=== PATIENT | male | born 1945 | race Caucasian/White ===

== ENCOUNTER → 2018-02-06 | Outpatient (CLI) | payer OTHER | END | disposition home or self-care (01) | LOC: OIH 13:58 | PROVIDERS: ATTEND Nurse Practitioner Adult Health | DX: Z13.6 Encounter for screening for cardiovascular disorders (principal) | CPT/HCPCS: 75571 ==

== ENCOUNTER → 2023-02-28 | Outpatient (CLI) | payer MEDICARE ==
[~2023-02-28] MED LIST: ATOR40TA69 PO; BETA1TAB20 PO; CALC-687 PO; LEVO50CA4 PO
== END | disposition home or self-care (01) ==
LOC: SHCH 07:46
PROVIDERS: ATTEND Internal Medicine Cardiovascular Disease
DX: I08.3 Combined rheumatic disorders of mitral, aortic and tricuspid valves (principal); R00.2 Palpitations; I50.1 Left ventricular failure, unspecified; I10 Essential (primary) hypertension; E78.5 Hyperlipidemia, unspecified
CPT/HCPCS: 93306

== ENCOUNTER 2024-10-16 08:04 | Emergency (ER) | payer MEDICARE ==
[~2024-10-16] VITALS: Ht 188 cm; Wt 108.9 kg
--- NOTE | 2024-10-16 08:19 | ERN ---
ED Note History of Present Illness Stated Complaint: BACK PAIN X 2 WEEKS Chief Complaint: Back Pain-No Injury Time Seen by MD: 08:07 Dictation: Patient is a 78-year-old male with past medical history of PA, hyperlipidemia, hypothyroidism and had a stent came with a chief complaint of back pain since 2 weeks. Patient denies any injury, aggravating or relieving factors for the back pain. Patient's back pain is consistent and he informed that it mostly occurs in the mornings. Allergies: Coded Allergies: No Known Drug Allergies (Unverified Allergy, Unknown, 10/14/19) Home Meds Reported Medications Atorvastatin Calcium (LIPITOR) 40 Mg Tablet, 40 MG PO DAILY, TAB 01/05/23 Calcium Carbonate/Vitamin D3 (Calcium 500 + Vit D Caplet) 1 Each Tablet, 1 EACH PO DAILY, TAB 01/05/23 Vit A/Vit C/Vit E/Zinc/Copper (Preservision Areds Tablet) 1 Each Tablet, 1 EACH PO BID, TAB 01/05/23 Levothyroxine Sodium (Levothyroxine) 50 Mcg Capsule, 50 MCG PO DAILY, CAP 01/05/23 Atorvastatin Calcium (LIPITOR) 40 Mg Tablet, 40 MG PO DAILY, TAB 01/05/23 Past Medical History Past Medical History: Heart Disease, PA Additional Past Medical Hx: History of hyperlipidemia Surgical History: Other Surgical History Other: HIP. SHOULDER, HEART STENT Family History: HTN Social History: ETOH, Lives with family Review of System Dictation Constitutional-no chills, weight loss/gain, fever Eyes-no injury, pain, redness and discharge ENT-no injury, pain, swelling Cardiovascular no chest pain, palpitations, edema Respiratory no shortness of breath, cough, wheezing Abdomen/GI-no abdominal pain, diarrhea, constipation, vomiting, nausea Back Admits back pain Genitourinary no injury, bleeding and discharge Musculoskeletal/extremities no injury, deformity Skin no rash, discoloration Neuro-no headache, weakness, numbness, tingling, seizures, tremors Psych-no suicidal ideation, homicidal ideation, hallucinations, depression, anxiety, memory loss Initial Vital Sign VS Vital Signs Date Time Temp Pulse Resp B/P (MAP) Pulse Ox O2 Delivery O2 Flow Rate FiO2 10/16/24 08:06 97.9 81 16 190/86 98 Room Air 0 10/16/24 09:11 21 Physical Exam Dictation General-patient is awake alert and oriented Head/neck-normocephalic, atraumatic Eyes-PERRL, EOMI, vision at baseline Neck-trachea midline, supple, no nuchal rigidity Cardiovascular-RRR, normal S1/S2, no MRG is, no JVD Respiratory-no distress, wheezing, rales, rhonchi Abdomen-no tenderness, guarding, soft, nondistended Skin warm, dry, normal turgor, no rash Musculoskeletal/extremities pulses equal, no cyanosis Neuro-COA X 4, GCS 15, strength 5/5, CN 2-12 intact Psych-normal behavior, mood and affect normal Results (Laboratory/Radiology) Laboratory/Radiology Laboratory Tests Test 10/16/24 09:01 10/16/24 10:22 White Blood Count 6.4 K/uL (4.8-10.8) Red Blood Count 4.47 MIL/uL (4.50-6.20) L Hemoglobin 14.4 g/dL (14.0-18.0) Hematocrit 43.2 % (42-54) Mean Corpuscular Volume 96.6 fL (79-99) Mean Corpuscular Hemoglobin 32.2 pg (27.0-33.0) Mean Corpuscular Hemoglobin Concent 33.3 g/dL (32.0-36.0) Red Cell Distribution Width 12.0 % (11.0-15.5) Platelet Count 149 K/uL (130-400) Mean Platelet Volume 11.4 fL (7.5-10.5) H Immature Granulocyte % (Auto) 0.5 % (0-1) Neutrophils (%) (Auto) 71.2 % (40.0-77.0) Lymphocytes (%) (Auto) 16.2 % (21.0-51.0) L Monocytes (%) (Auto) 10.1 % (3.0-13.0) Eosinophils (%) (Auto) 1.2 % (0.0-8.0) Basophils (%) (Auto) 0.8 % (0.0-5.0) Neutrophils # (Auto) 4.6 K/uL (1.8-7.7) Lymphocytes # (Auto) 1.0 K/uL (1.0-4.8) Monocytes # (Auto) 0.7 K/uL (0.1-1.0) Eosinophils # (Auto) 0.08 K/uL (0.00-0.70) Basophils # (Auto) 0.05 K/uL (0.00-0.20) Absolute Immature Granulocyte (auto 0.03 K/uL (0-1) Nucleated Red Blood Cells 0.0 % (0.0-0.19) Sodium Level 137 mmol/L (136-145) Potassium Level 4.4 mmol/L (3.5-5.1) Chloride Level 102 mmol/L (101-111) Carbon Dioxide Level 29 mmol/L (21-32) Blood Urea Nitrogen 12 mg/dL (7-18) Creatinine 1.2 mg/dL (0.5-1.3) Glomerular Filtration Rate Calc 62 mL/min (>90) Random Glucose 195 mg/dL (70-105) H Total Calcium 9.2 mg/dL (8.5-10.1) Urine Color LIGHT-YELLOW (YELLOW) Urine Appearance CLEAR (CLEAR) Urine pH 5.0 (5.0-8.0) Urine Specific [place] 1.012 (1.001-1.031) Urine Protein NEGATIVE mg/dL (NEGATIVE) Urine Glucose (UA) NEGATIVE mg/dL (NEGATIVE) Urine Ketones NEGATIVE mg/dL (NEGATIVE) Urine Occult Blood NEGATIVE (NEGATIVE) Urine Nitrate NEGATIVE (NEGATIVE) Urine Bilirubin NEGATIVE mg/dL (NEGATIVE) Urine Urobilinogen 0.2 mg/dL (0.2-1.0) Urine Leukocyte Esterase NEGATIVE Sánchez/uL Labs Reviewed?: Yes Ultrasound Comment: [id number] [address] IMAGING REPORT Signed PATIENT: QING GARDINER MR#: [id number] : 1945 SEX: M AGE: 78 LOCATION: [facility] ORDER 0 STATUS: REG ER REPORT#: [id number] SERVICE 9 REASON: RULE OUT TRIPLE A ORDERING PHYSICIAN: GAVIOTA YOON MD PROCEDURE: AORTA - US AORTA LIMITED US AORTA LIMITED REASON: RULE OUT TRIPLE A. COMPARISON: None TECHNIQUE: Limited abdominal ultrasound study was performed. FINDINGS: Proximal portion of abdominal aorta measures 2.2 x 2.3 cm, midportion measures 1.7 x 1.9 cm and distal portion measures 1.9 x 1.9 cm. Right common iliac artery measures 13 x 11 mm. Left common iliac artery measures 13 x 16 mm. No evidence of abdominal aortic aneurysm is seen. IMPRESSION: No evidence of abdominal aortic aneurysm. DICTATED BY: ADRIANA SEYMOUR MD DATE: 10/16/2440 ELECTRONICALLY SIGNED BY: ADRIANA SEYMOUR MD DATE: 10/16/[address] Scan Comment: [place] [id number] [place] [address] IMAGING REPORT Signed PATIENT: QING GARDINER MR#: [id number] : 1945 SEX: M AGE: 78 LOCATION: [facility] ORDER 8 STATUS: REG ER REPORT#: [id number] SERVICE REASON: Left low back pain ORDERING PHYSICIAN: DANICA DIAMOND MD PROCEDURE: ABD PEL WO - CT ABDOMEN/PELVIS W/O CONTRAST CT ABDOMEN/PELVIS W/O CONTRAST HISTORY: Left lower back pain COMPARISON: None TECHNIQUE: Multiple sequential axial images of the abdomen and pelvis were obtained from the dome of the diaphragm through symphysis pubis. Patient was not given contrast through intravenous route. Oral contrast was not given. FINDINGS: No pleural effusion is seen bilaterally. There is right middle lobe pulmonary nodule measuring 8.5 mm. Degenerative changes of the thoracolumbar spine are present. The heart is not enlarged. Mitral annulus calcifications are seen. There is scoliosis. Liver measures 17 cm. Fatty changes of the liver are noted. A small hiatal hernia is seen. The liver, spleen, adrenal glands and pancreas are unremarkable. There is no evidence of hydronephrosis bilaterally. No evidence of renal stone is seen. Nonspecific bilateral perinephric fat stranding is seen may be related to pyelonephritis. Urinalysis correlation may be helpful. There is diverticulosis. Fecal material is seen in the colon. There are normal size retroperitoneal and mesenteric lymph nodes. No ascites is seen. Atherosclerotic changes are present. Pelvic sidewalls are symmetric bilaterally. There are bilateral hip prosthesis causing artifacts limiting evaluation of the pelvis. Bladder is poorly seen. IMPRESSION: 1. Nonspecific bilateral perinephric fat stranding is seen may be related to pyelonephritis. Urinalysis correlation may be helpful. There is diverticulosis. Fecal material is seen in the colon. CT was performed with one or more following dose reduction techniques: automated exposure control, adjustment of the mA and kv according to patient's size, or use of a iterative reconstruction technique. DICTATED BY: ADRIANA SEYMOUR MD DATE: 10/16/24 1024 ELECTRONICALLY SIGNED BY: ADRIANA SEYMOUR MD DATE: 10/16/24 1029 ED Course ED Course Orders Procedure Category Date Status Time Us Aorta Limited US 10/16/24 Resulted 08:10 Cbc With Differential LAB 10/16/24 Complete 08:39 Basic Metabolic Panel LAB 10/16/24 Complete 08:39 Urinalysis Profile LAB 10/16/24 Complete 08:39 Ct Abdomen/Pelvis W/O CT 10/16/24 Resulted Contrast 08:57 Vital Signs Date Time Temp Pulse Resp B/P (MAP) Pulse Ox O2 Delivery O2 Flow Rate FiO2 10/16/24 10:24 98.6 64 20 150/72 100 Room Air* 0 21 10/16/24 09:11 98.6 65 20 154/74 100 Room Air* 0 21 10/16/24 08:06 97.9 81 16 190/86 98 Room Air 0 Medical Decision Making MDM INITIAL IMPRESSION Initial history and physical concerning for AAA , Musculoskeletal pain , Injury Contributing medical problems: I have reviewed the triage nursing notes and vital signs. Initial plan: Laboratory evaluation and x-ray DATA REVIEW [I have reviewed additional NN, repeat VS, and monitoring where indicated.] Heart rate, blood pressure, and O2 saturation are [acceptable]. Flynn diagnostic results: [none] Other independent historian: [none] Review of external data: [None.] ED COURSE Interventions: [None] Reassessment: [Not indicated.] DISPOSITION Final diagnostic impression:[ ] I discussed my findings, clinical impression and treatment recommendations with [the patient.] I have reviewed the social factors contributing to the patient's presentation and disposition planning. [ ] My final plan for disposition was made based upon -[mild] risk of complications and potential morbidity of the patient's condition. -Discussion with [the patient] regarding management options[.] [-Consultation with] [diposition] DX & DISP Disposition: Discharge Departure Impression: Primary Impression: Constipation Additional Impressions: Diverticulosis, UTI (urinary tract infection) Condition: Stable Scripts Cephalexin Monohydrate (Keflex) 500 Mg Cap 1 CAP PO BID for 10 Days, #20 CAP 0 Refills Prov: GAVIOTA YOON MD 10/16/24 Lactulose (Lactulose) 10 Gram/15 Ml Solution 30 ML PO BID for constipation for 5 Days, #500 ML 0 Refills Prov: GAVIOTA YOON MD 10/16/24 Additional Instructions: FOLLOW-UP WITH PRIMARY CARE PROVIDER IN 1 TO 2 DAYS. TAKE MEDICATIONS DIRECTED HERE IN THE EMERGENCY ROOM. OKAY TO CONTINUE HOME MEDICATIONS UNLESS OTHERWISE DISCUSSED DURING YOUR VISIT IN THE EMERGENCY ROOM TODAY. RETURN TO YOUR NEAREST EMERGENCY ROOM IF SYMPTOMS WORSEN OR IF THERE IS NO IMPROVEMENT. CALL 911 IF YOU NEED IMMEDIATE ASSISTANCE. TAKE TYLENOL [id number] NEEDED AND IF NO CONTRAINDICATIONS ARE PRESENT. INCREASE ORAL HYDRATION. A WOUND CULTURE OR URINE CULTURE WAS ORDERED HERE IN THE EMERGENCY ROOM DEPARTMENT PLEASE FOLLOW-UP WITH PRIMARY CARE PROVIDER AND ADVISE THEM TO GET REPEAT PORTS FROM OUR FACILITY. IF YOU HAD ANY ANNIKA WRAP/SPLINTS THAT WERE APPLIED HERE, PLEASE DO NOT REMOVE THEM UNTIL YOU SEE YOUR PRIMARY CARE OR SPECIALTY. REFERRALS: Referrals: KOSTAS HERNANDEZ NP (PCP) Time of Disposition: 10:52 DANICA DIAMOND MD Oct 16, 2024 08:18 GAVIOTA YOON MD Oct 16, 2024 10:53
[2024-10-16 09:13] LABS: BASOPHILS # (AUTO) 0.05 K/uL (0.00-0.20); BASOPHILS % (AUTO) 0.8 % (0.0-5.0); EOSINOPHILS # (AUTO) 0.08 K/uL (0.00-0.70); EOSINOPHILS % (AUTO) 1.2 % (0.0-8.0); HEMATOCRIT 43.2 % (42-54); IMMATURE GRANULOCYTE ABSOLUTE 0.03 K/uL (0-1); LYMPHOCYTES % (AUTO) 16.2 % (21.0-51.0); MEAN CORPUSCULAR HEMOGLOBIN 32.2 pg (27.0-33.0); MEAN CORPUSCULAR HGB CONC 33.3 g/dL (32.0-36.0); MEAN CORPUSCULAR VOLUME 96.6 fL (79-99); MONOCYTES # (AUTO) 0.7 K/uL (0.1-1.0); MONOCYTES % (AUTO) 10.1 % (3.0-13.0); NEUTROPHILS # (AUTO) 4.6 K/uL (1.8-7.7); NEUTROPHILS % (AUTO) 71.2 % (40.0-77.0); PLATELET COUNT (AUTO) 149 K/uL (130-400); RED BLOOD CELL COUNT(AUTO) 4.47 MIL/uL (4.50-6.20); WHITE BLOOD COUNT (AUTO) 6.4 K/uL (4.8-10.8)
[2024-10-16 09:23] LABS: CREATININE 1.2 mg/dL (0.5-1.3); POTASSIUM 4.4 mmol/L (3.5-5.1)
[2024-10-16 10:24] VITALS: BP 150/72; PULSE 64; RESP 20; TEMP 98.6; O2SAT 100
--- NOTE | 2024-10-16 10:26 | HMCIMG ---
US AORTA LIMITED REASON: RULE OUT TRIPLE A. COMPARISON: None TECHNIQUE: Limited abdominal ultrasound study was performed. FINDINGS: Proximal portion of abdominal aorta measures 2.2 x 2.3 cm, midportion measures 1.7 x 1.9 cm and distal portion measures 1.9 x 1.9 cm. Right common iliac artery measures 13 x 11 mm. Left common iliac artery measures 13 x 16 mm. No evidence of abdominal aortic aneurysm is seen. IMPRESSION: No evidence of abdominal aortic aneurysm.
--- NOTE | 2024-10-16 10:29 | HMCIMG ---
CT ABDOMEN/PELVIS W/O CONTRAST HISTORY: Left lower back pain COMPARISON: None TECHNIQUE: Multiple sequential axial images of the abdomen and pelvis were obtained from the dome of the diaphragm through symphysis pubis. Patient was not given contrast through intravenous route. Oral contrast was not given. FINDINGS: No pleural effusion is seen bilaterally. There is right middle lobe pulmonary nodule measuring 8.5 mm. Degenerative changes of the thoracolumbar spine are present. The heart is not enlarged. Mitral annulus calcifications are seen. There is scoliosis. Liver measures 17 cm. Fatty changes of the liver are noted. A small hiatal hernia is seen. The liver, spleen, adrenal glands and pancreas are unremarkable. There is no evidence of hydronephrosis bilaterally. No evidence of renal stone is seen. Nonspecific bilateral perinephric fat stranding is seen may be related to pyelonephritis. Urinalysis correlation may be helpful. There is diverticulosis. Fecal material is seen in the colon. There are normal size retroperitoneal and mesenteric lymph nodes. No ascites is seen. Atherosclerotic changes are present. Pelvic sidewalls are symmetric bilaterally. There are bilateral hip prosthesis causing artifacts limiting evaluation of the pelvis. Bladder is poorly seen. IMPRESSION: 1. Nonspecific bilateral perinephric fat stranding is seen may be related to pyelonephritis. Urinalysis correlation may be helpful. There is diverticulosis. Fecal material is seen in the colon. CT was performed with one or more following dose reduction techniques: automated exposure control, adjustment of the mA and kv according to patient's size, or use of a iterative reconstruction technique.
[2024-10-16 10:36] LABS: APPEARANCE,URINE CLEAR (CLEAR); BILIRUBIN,URINE NEGATIVE (NEGATIVE); COLOR,URINE LIGHT-YELLOW (YELLOW); GLUCOSE, URINE (UA) NEGATIVE (NEGATIVE); KETONES,URINE NEGATIVE (NEGATIVE); LEUKOCYTE ESTERASE ,URINE NEGATIVE Leu/uL (NEGATIVE); NITRATE,URINE NEGATIVE (NEGATIVE); OCCULT BLOOD,URINE NEGATIVE (NEGATIVE); PROTEIN,URINE NEGATIVE (NEGATIVE); UROBILINOGEN,URINE 0.2 mg/dL (0.2-1.0)
[2024-10-16 10:40] LABS: ADD UA MICROSCOPIC NO
[2024-10-16] MEDS ORDERED: LACT10SO85 PO (10:53)
[2024-10-16] MEDS ORDERED: CEPH500B PO (10:53)
== END 2024-10-16 10:55 | disposition home or self-care (01) ==
LOC: EDH 08:04
DX: K59.00 Constipation, unspecified (principal); N39.0 Urinary tract infection, site not specified; K57.90 Diverticulosis of intestine, part unspecified, without perforation or abscess without bleeding; E78.5 Hyperlipidemia, unspecified; Z79.890 Hormone replacement therapy; Z79.899 Other long term (current) drug therapy; Z95.5 Presence of coronary angioplasty implant and graft
CPT/HCPCS: 36415; 74176; 76775; 80048; 81003; 85025; 99284

== ENCOUNTER 2024-12-05 08:00 | Emergency (ER) | payer MEDICARE ==
[~2024-12-05] VITALS: Ht 188 cm; Wt 108.9 kg
[~2024-12-05 08:00] MED LIST changes: +CEPH500B PO; +LACT10SO85 PO
[2024-12-05 08:19] VITALS: BP 122/73; PULSE 72; RESP 20; TEMP 97.6; O2SAT 97
--- NOTE | 2024-12-05 08:27 | ERN ---
ED Note History of Present Illness Stated Complaint: LOW BACK PAIN X 1 MONTH Chief Complaint: Low Back Pain/Injury Time Seen by MD: 08:13 Dictation: 79-year-old male presents to the ED for evaluation of lower back pain onset 1 month ago. Patient denies any urinary retention, incontinence, trauma, injury or any other associated symptoms at this time. Allergies: Coded Allergies: No Known Drug Allergies (Unverified Allergy, Unknown, 10/14/19) Home Meds Active Scripts Cephalexin Monohydrate (Keflex) 500 Mg Cap, 1 CAP PO BID for 10 Days, #20 CAP 0 Refills Prov:GAVIOTA YOON MD 10/16/24 Lactulose (Lactulose) 10 Gram/15 Ml Solution, 30 ML PO BID for constipation for 5 Days, #500 ML 0 Refills Prov:GAVIOTA YOON MD 10/16/24 Reported Medications Atorvastatin Calcium (LIPITOR) 40 Mg Tablet, 40 MG PO DAILY, TAB 01/05/23 Calcium Carbonate/Vitamin D3 (Calcium 500 + Vit D Caplet) 1 Each Tablet, 1 EACH PO DAILY, TAB 01/05/23 Vit A/Vit C/Vit E/Zinc/Copper (Preservision Areds Tablet) 1 Each Tablet, 1 EACH PO BID, TAB 01/05/23 Levothyroxine Sodium (Levothyroxine) 50 Mcg Capsule, 50 MCG PO DAILY, CAP 01/05/23 Atorvastatin Calcium (LIPITOR) 40 Mg Tablet, 40 MG PO DAILY, TAB 01/05/23 Past Medical History Past Medical History: CAD, Hypothyroid Additional Past Medical Hx: History of hyperlipidemia Surgical History: Other Surgical History Other: BILATERAL HIP AND SHOULDERS, STENTS, VALVE REPLACEMENT Family History: HTN Social History: ETOH, Lives with family Review of System Dictation Constitutional: Negative for fever,chills, and weight loss Eyes: Negative for injury, pain,redness, and discharge ENT: Negative for injury,pain or swelling Cardiovascular: Negative for chest pain, palpitations, and edema Respiratory: Negative for shortness of breath, cough, and wheezing, Abdomen/GI: Negative for abdominal pain, nausea, vomiting, diarrhea, and constipation Back: Negative for back pain negative for injury : Negative for injury, bleeding and discharge MS/Extremity: Negative for injury and deformity Skin: Negative for rash, and discoloration Neuro: Negative for headache, weakness, numbness, tingling, and seizure Psych: Negative for suicide ideation, homicidal ideation, and hallucinations Initial Vital Sign VS Vital Signs Date Time Temp Pulse Resp B/P (MAP) Pulse Ox O2 Delivery O2 Flow Rate FiO2 12/05/24 08:01 97.5 72 20 122/73 99 Room Air 0 12/05/24 08:19 21 Physical Exam Dictation General: awake, alert, NAD Head/Face: Normocephalic, atraumatic Eyes: PERRL, EOMI, vision at baseline ENT: oral cavity clear, TMs clear, no signs of infection Neck: Trachea midline, supple, no nuchal rigidity Cardiovascular: RRR, normal S1/S2, No MRGs, no JVD Respiratory: CTAB, no respiratory distress, No rales or wheezes Abdomen: Soft, non-tender, non-distended, normal bowel sounds, no guarding or rebound. Skin: Warm, dry, normal turgor, no rash MS/Extremity: Pulses equal, no cyanosis, neurovascular intact, FROM Neuro: COAx4, GCS 15, strength 5/5, CN 2-12 intact, normal cerebellar exam, normal gait, Psych: Normal behavior, mood, and affect normal ED Course ED Course Orders Procedure Category Date Status Time Lidocaine (Lidoderm PHA 12/05/24 Complete Patch 5%) 08:30 Current Medications Medications (Trade) Dose Ordered Sig/Marco Route PRN Reason Start Time Stop Time Status Last Admin Dose Admin Lidocaine (Lidoderm Patch 5%) 1 patch ONCE ONCE TP 12/05/24 08:30 12/05/24 08:31 DC 12/05/24 08:30 Vital Signs Date Time Temp Pulse Resp B/P (MAP) Pulse Ox O2 Delivery O2 Flow Rate FiO2 12/05/24 08:19 97.5 72 20 122/73 97 Room Air* 0 21 12/05/24 08:01 97.5 72 20 122/73 99 Room Air 0 Medical Decision Making MDM MDM: Differential diagnosis: Back pain, lumbar strain, lumbar radiculopathy Previous outside records reviewed: Old ER visits. Need for hospitalization: Patient does not meet criteria for hospitalization. Need for emergency major/minor surgery: No Patient's prior external medical records from other ER visits were reviewed by me as indicated. Prior testing and results from previous visits were reviewed. Prior tests were taken into account with medical decision making and resource utilization, independent historian/historians were used to obtain complete medical history. I independently interpreted the test that were performed, results were reviewed by me and considered findings on radiology if ordered. Medical management and examination interpretation discussions were had by me with other qualified healthcare professionals as indicated for the patient's care. DX & DISP Disposition: Discharge Departure Impression: Primary Impression: Lumbar radiculopathy, acute Condition: Stable Referrals: KOSTAS HERNANDEZ SOUND EFFECTS MANAGER (PCP) WAN PEREZ MD Time of Disposition: 08:27 SMITA GARRETT MD Dec 05, 2024 08:27
[2024-12-05] MEDS: LIDOCAINE 5% TOPICAL PATCH TP ONE (08:30)
== END 2024-12-05 08:40 | disposition home or self-care (01) ==
LOC: EDH 08:00
DX: M54.16 Radiculopathy, lumbar region (principal); I25.10 Atherosclerotic heart disease of native coronary artery without angina pectoris; E03.9 Hypothyroidism, unspecified; E78.5 Hyperlipidemia, unspecified; Z79.890 Hormone replacement therapy; Z79.899 Other long term (current) drug therapy; Z95.2 Presence of prosthetic heart valve
CPT/HCPCS: 99282

== ENCOUNTER → 2025-02-14 | Outpatient (CLI) | payer MEDICARE ==
--- NOTE | 2025-02-14 13:52 | HMCIMG ---
MRI OF THE LUMBAR SPINE WITHOUT GADOLINIUM Clinical Information: Pain Comparison: None Findings: Technique: Sagittal T1 and T2 FSE, Sagittal STIR and Sagittal proton density images were completed through the lumbosacral spine. Axial T1, T2 and proton density images were also acquired. FINDINGS: Spondylitic changes are seen and there is straightening consistent with spasm. No fractures are noted. Evaluation of the lumbar spine by level: T12-L1: There is no spinal canal stenosis. No disc protrusion or extrusion is noted. There is no neural foraminal stenosis, impingement, or narrowing. L1-L2: There is a broad-based central zone disc protrusion causing neural foramina narrowing bilaterally at this level. Bilateral nerve root impingement seen. L2-L3: There is a broad-based central zone disc protrusion causing neural foramina narrowing bilaterally at this level. Bilateral nerve root impingement seen. L3-L4: There is no spinal canal stenosis. No disc protrusion or extrusion is noted. There is no neural foraminal stenosis, impingement, or narrowing. L4-L5: There is no spinal canal stenosis. No disc protrusion or extrusion is noted. However, degenerative changes of the uncovertebral joint in the facet joints combine to cause spinal canal stenosis as well as right-sided neural foraminal narrowing and nerve root impingement. L5-S1: There is a broad-based central zone disc protrusion causing neural foramina narrowing bilaterally at this level. Bilateral nerve root impingement seen, worse on the left. Impression: Multilevel disc protrusions and other degenerative changes.
== END | disposition home or self-care (01) ==
LOC: RAH 12:56
PROVIDERS: ATTEND Nurse Practitioner Adult Health
DX: M47.816 Spondylosis without myelopathy or radiculopathy, lumbar region (principal); M51.26 Other intervertebral disc displacement, lumbar region; M51.27 Other intervertebral disc displacement, lumbosacral region; M48.061 Spinal stenosis, lumbar region without neurogenic claudication; M25.80 Other specified joint disorders, unspecified joint
CPT/HCPCS: 72148